=== PATIENT | female | born 1995 | race Caucasian/White ===

== ENCOUNTER 2016-09-08 18:21 | Emergency (ER) | payer MEDICAID, OTHER, SELFPAY ==
[~2016-09-08 18:21] MED LIST: ACET50TA PO; BACT800T5 PO; IBUP60TA PO; LEVA500T PO; NICO21PAT TD; PERCOCET PO; SERT-141 PO; ZYVO100T PO
[2016-09-08] MEDS ORDERED: CLINDAMYCIN 150 MG CAP As Ordered ONE (19:03)
[2016-09-08] MEDS ORDERED: IBUPROFEN 400 MG TAB As Ordered ONE (19:03)
[2016-09-08] MEDS ORDERED: CIPROFLOXACIN HC OTIC SUSPENSION As Ordered ONE (19:03)
--- NOTE | 2016-09-08 19:35 | EDDOCDS ---
Physician Documentation [facility] Name: Lorna Kirk Age: 20 yrs Sex: Female : 1995 Arrival Date: 09/08/2016 Time: 18:21 Bed Triage 1 Private MD: Disposition: 09/08/16 19:28 Discharged to Home/Self Care. Impression: Cellulitis, unspecified - RIGHT POSTERIOR SHOULDER, Acute actinic otitis externa, left ear. - Condition is Stable. - Discharge Instructions: Cellulitis, Otitis Externa. - Prescriptions for Cipro HC 0.2- 1 % Otic Drops, Suspension - instill 3 drop by OTIC route every 12 hours for 7 days; 10 milliliter. Clindamycin HCl 300 mg Oral Capsule - take 1 capsule by ORAL route every 6 hours; 40 capsule. Ibuprofen 400 mg Oral Tablet - take 1 tablet by ORAL route every 6 hours As needed take with food; 30 tablet. - Medication Reconciliation, Local Pharmacy Hours form. - Follow up: Emergency Department; When: 1 - 2 days; Reason: Wound/Symptom Recheck, Recheck today's complaints, Continuance of care. - Problem is new. - Symptoms have improved. - Notes: USE MEDICATIONS INSTRUCTED, FOLLOW UP IN THE PHILIPPE FRIDAYFOR RECHECK OF SYMPTOMS, RETURN SOONER IF SYMPTOMS WORSEN OR BECOME CONCERNING Historical: - Allergies: no known allergies; - Home Meds: 1. Atarax 25 mg Oral tab as needed 2. Lopressor 12.5 mg daily Oral - PMHx: Hepatitis C; Substance Abuse; Anxiety; Hypertension; - PSHx: none; - Social history: Smoking status: Patient uses tobacco products, light tobacco smoker. No barriers to communication noted, The patient speaks fluent Kyrgyz. - Family history: Not pertinent. - : The pt / caregiver states he / she is not on anticoagulants. Home medication list is obtained from the patient. - Exposure Risk Screening:: None identified. [employer]: 09/08 18:30 LMP N/A - Irregular menses rs3 Vital Signs: 18:23 BP 138 / 69 RA Sitting (auto/reg); Pulse 119; Resp 20; Temp 98.9; Pulse Ox 99% on R/A; bnb Weight 59.87 kg / 131.99 lbs; Height 5 ft. 9 in. (175.26 cm); Pain 9/10; 19:02 BP 113 / 67; Pulse 116; Resp 20; Pulse Ox 98% on R/A; ar3 19:31 Pulse 107; Resp 16; Pulse Ox 98% on R/A; Pain 8/10; ttb 18:23 Body Mass Index 19.49 (59.87 kg, 175.26 cm) bnb MDM: 19:00 Recheck Vital Signs, perform reassessment and enter into [employer] ordered. ck7 19:00 Clindamycin 300 mg PO once ordered. ck7 19:00 Ciprofloxacin-Hydrocortisone Drops 0.2 %-1 % 2 drps Otic once; LEFT EAR ordered. ck7 19:00 Ibuprofen 400 mg PO once ordered. ck7 : [facility] Payment Agreement was scanned into [email or web address] and attached to record. jp5 : Financial registration complete. jp5 Administered Medications: 19:07 Drug: Clindamycin 300 mg [clindamycin 150 mg capsule (2 caps)] Route: PO; jjr 19:07 Drug: Ciprofloxacin-Hydrocortisone 2 drps [ciprofloxacin 0.2 %-hydrocortisone 1 % ear jjr drops,suspension (2 drps)] Route: Otic; Site: left ear; 19:07 Drug: Ibuprofen 400 mg [ibuprofen 400 mg tablet (1 tabs)] Route: PO; jjr Signatures: Flora Gallego RN RN rs3 Jose Zamudio, RPA-C RPA-Cck7 Gauri Mckoy RN RN ttb Reagan Acevedo jp5 Anastacia Wright RN jjr The chart was reviewed and I authenticate all verbal orders and agree with the evaluation and treatment provided.Attachments: :25 REPLACED BY [facility] Payment Agreement jp5 MTDD
--- NOTE | 2016-09-08 19:36 | EDDOCDS ---
Nurse's Notes [facility] Name: Lorna Kirk Age: 20 yrs Sex: Female : 1995 Arrival Date: 09/08/2016 Time: 18:21 Bed Triage 1 Private MD: Diagnosis: Cellulitis, unspecified-RIGHT POSTERIOR SHOULDER;Acute actinic otitis externa, left ear Presentation: 09/08 18:25 Presenting complaint: Patient states: Right shoulder blade redness/pain for two days. rs3 started as pimple, popped it, redness/pain spreading. Adult Sepsis Screening: The patient does not have new or worsening altered mentation. Patient's respiratory rate is less than 22. Systolic blood pressure is greater than 100. Patient has a qSOFA score of 0- Negative Sepsis Screen. Suicide/Homicide risk assessment- the patient denies having any suicidal and/or homicidal ideations and does not present with any other emotional, behavioral or mental health complaints. 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 Transition of care: patient was not received from another setting of care. 18:25 Acuity: SALVATORE Level 4 rs3 18:25 Method Of Arrival: Walkin/Carried/Asstd rs3 Triage Assessment: 18:30 General: Appears in no apparent distress. Pain: Location: right scapular area. 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 Atarax 25 mg Oral tab as needed 2. Lopressor 12.5 mg daily Oral - PMHx: Hepatitis C; Substance Abuse; Anxiety; Hypertension; - PSHx: none; - Social history: Smoking status: Patient uses tobacco products, light tobacco smoker. No barriers to communication noted, The patient speaks fluent Occitan. - Family history: Not pertinent. - : The pt / caregiver states he / she is not on anticoagulants. Home medication list is obtained from the patient. - Exposure Risk Screening:: None identified. Screenin:08 Screening information is obtained from the patient. Fall risk: No risks identified. jjr Assistance ADL's: requires no assistance with activities of daily living. Abuse/DV Screen: The patient / caregiver reports he/she is: not in a situation that causes fear, pain or injury. Nutritional screening: No deficits noted. Advance Directives: There is no active DNR order. home support is adequate. Assessment: 19:07 General: Appears in no apparent distress, slender, Behavior is appropriate for age. jjr EENT: Pinna red and crusty. Derm: multiple scabs noted to upper back. 19:34 Reassessment: Patient appears in no apparent distress at this time. pt states she is ttb ready for DC. Vital Signs: 18:23 BP 138 / 69 RA Sitting (auto/reg); Pulse 119; Resp 20; Temp 98.9; Pulse Ox 99% on R/A; bnb Weight 59.87 kg; Height 5 ft. 9 in. (175.26 cm); Pain 9/10; 19:02 BP 113 / 67; Pulse 116; Resp 20; Pulse Ox 98% on R/A; ar3 19:31 Pulse 107; Resp 16; Pulse Ox 98% on R/A; Pain 8/10; ttb 18:23 Body Mass Index 19.49 (59.87 kg, 175.26 cm) bnb Vitals: 18:23 Log In Time: September 08, 2016 at 18:20. bnb ED Course: 18:23 Patient visited by Lena Gonzalez PCA. bnb 18:23 Patient moved to Waiting bnb 18:24 Patient moved to Pre RCE bnb 18:28 Triage Initiated rs3 18:38 Patient moved to Triage 1 jjr 18:42 [facility]C [facility] ck[facility] 18:42 Dee Dixon MD is Attending Physician. ck7 18:42 Patient visited by Jose Zamudio RPA-C. ck7 19:02 Patient visited by Winter Soto PCA. ar3 19:08 The patient / caregiver is instructed regarding the plan of care and ED course. jjr 19:08 No IV's were initiated during this patient's visit. No procedures done that require jjr assistance. 19:09 Patient visited by Anastacia Wright RN. jjr 19:25 [facility] Payment Agreement was scanned into [employer] and attached to record. jp5 19:33 Patient visited by Gauri Mckoy RN. ttb Administered Medications: 19:07 Drug: Clindamycin 300 mg [clindamycin 150 mg capsule (2 caps)] Route: PO; jjr 19:07 Drug: Ciprofloxacin-Hydrocortisone 2 drps [ciprofloxacin 0.2 %-hydrocortisone 1 % ear jjr drops,suspension (2 drps)] Route: Otic; Site: left ear; 19:07 Drug: Ibuprofen 400 mg [ibuprofen 400 mg tablet (1 tabs)] Route: PO; jjr Order Results: There are currently no results for this order. Outcome: 19:28 Discharge ordered by Provider. ck7 19:34 Discharge Assessment: Patient awake, alert and oriented x 3. No cognitive and/or ttb functional deficits noted. Patient verbalized understanding of disposition instructions. Patient awake and alert. patient administered narcotics - no. The following High Risk Discharge criteria are identified: None. Discharged to home ambulatory, with significant other. Condition: good Condition: stable Condition: improved. Discharge instructions given to patient, significant other, Instructed on discharge instructions, follow up and referral plans. medication usage, Demonstrated understanding of instructions, medications, Pt was receptive of discharge instructions/ teaching. Prescriptions given X 1, 2, 3. No special radiology studies were completed. Property :Personal belongings accompany Pt. 19:35 Patient left the ED. ttb Signatures: Anastacia Wright, RN RN Flora Patino RN RN rs3 Winter Soto, DIE TURNER DIE TURNER ar3 Jose Zamudio, RPA-C RPA-Cck7 Gauri Mckoy RN RN ttb Reagan Acevedo Brittney, DIE TURNER DIE TURNER bnb MTDD
--- NOTE | 2016-09-10 20:36 | EDDOCDS ---
Nurse's Notes [facility] Name: Lorna Kirk Age: 20 yrs Sex: Female : 1995 Arrival Date: 09/08/2016 Time: 18:21 Bed Triage 1 Private MD: Diagnosis: Cellulitis, unspecified-RIGHT POSTERIOR SHOULDER;Acute actinic otitis externa, left ear Presentation: 09/08 18:25 Presenting complaint: Patient states: Right shoulder blade redness/pain for two days. rs3 started as pimple, popped it, redness/pain spreading. Adult Sepsis Screening: The patient does not have new or worsening altered mentation. Patient's respiratory rate is less than 22. Systolic blood pressure is greater than 100. Patient has a qSOFA score of 0- Negative Sepsis Screen. Suicide/Homicide risk assessment- the patient denies having any suicidal and/or homicidal ideations and does not present with any other emotional, behavioral or mental health complaints. 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 Transition of care: patient was not received from another setting of care. 18:25 Acuity: SALVATORE Level 4 rs3 18:25 Method Of Arrival: Walkin/Carried/Asstd rs3 Triage Assessment: 18:30 General: Appears in no apparent distress. Pain: Location: right scapular area. HIV rs3 screening NA for this visit Offered previously. [employer]: 18:30 LMP N/A - Irregular menses rs3 Historical: - Allergies: no known allergies; - Home Meds: 1. Atarax 25 mg Oral tab as needed 2. Lopressor 12.5 mg daily Oral - PMHx: Hepatitis C; Substance Abuse; Anxiety; Hypertension; - PSHx: none; - Social history: Smoking status: Patient uses tobacco products, light tobacco smoker. No barriers to communication noted, The patient speaks fluent Belarusian. - Family history: Not pertinent. - : The pt / caregiver states he / she is not on anticoagulants. Home medication list is obtained from the patient. - Exposure Risk Screening:: None identified. Screenin:08 Screening information is obtained from the patient. Fall risk: No risks identified. jjr Assistance ADL's: requires no assistance with activities of daily living. Abuse/DV Screen: The patient / caregiver reports he/she is: not in a situation that causes fear, pain or injury. Nutritional screening: No deficits noted. Advance Directives: There is no active DNR order. home support is adequate. Assessment: 19:07 General: Appears in no apparent distress, slender, Behavior is appropriate for age. jjr EENT: Pinna red and crusty. Derm: multiple scabs noted to upper back. 19:34 Reassessment: Patient appears in no apparent distress at this time. pt states she is ttb ready for DC. Vital Signs: 18:23 BP 138 / 69 RA Sitting (auto/reg); Pulse 119; Resp 20; Temp 98.9; Pulse Ox 99% on R/A; bnb Weight 59.87 kg; Height 5 ft. 9 in. (175.26 cm); Pain 9/10; 19:02 BP 113 / 67; Pulse 116; Resp 20; Pulse Ox 98% on R/A; ar3 19:31 Pulse 107; Resp 16; Pulse Ox 98% on R/A; Pain 8/10; ttb 18:23 Body Mass Index 19.49 (59.87 kg, 175.26 cm) bnb Vitals: 18:23 Log In Time: September 08, 2016 at 18:20. bnb ED Course: 18:23 Patient visited by Lena Gonzalez PCA. bnb 18:23 Patient moved to Waiting bnb 18:24 Patient moved to Pre RCE bnb 18:28 Triage Initiated rs3 18:38 Patient moved to Triage 1 jjr 18:42 [facility] ck[facility] 18:42 Dee Dixon MD is Attending Physician. ck7 18:42 Patient visited by Jose Zamudio RPA-C. ck7 19:02 Patient visited by Winter Soto PCA. ar3 19:08 The patient / caregiver is instructed regarding the plan of care and ED course. jjr 19:08 No IV's were initiated during this patient's visit. No procedures done that require jjr assistance. 19:09 Patient visited by Anastacia Wright RN. jjr 19:25 [facility] Payment Agreement was scanned into [employer] and attached to record. jp5 19:33 Patient visited by Gauri Mckoy RN. ttb 09/09 12:36 T-Sheet-- Draft Copy was scanned into [employer] and attached to record. gb Administered Medications: 09/08 19:07 Drug: Clindamycin 300 mg [clindamycin 150 mg capsule (2 caps)] Route: PO; jjr 19:07 Drug: Ciprofloxacin-Hydrocortisone 2 drps [ciprofloxacin 0.2 %-hydrocortisone 1 % ear jjr drops,suspension (2 drps)] Route: Otic; Site: left ear; 19:07 Drug: Ibuprofen 400 mg [ibuprofen 400 mg tablet (1 tabs)] Route: PO; jjr Order Results: There are currently no results for this order. Outcome: 19:28 Discharge ordered by Provider. ck7 19:34 Discharge Assessment: Patient awake, alert and oriented x 3. No cognitive and/or ttb functional deficits noted. Patient verbalized understanding of disposition instructions. Patient awake and alert. patient administered narcotics - no. The following High Risk Discharge criteria are identified: None. Discharged to home ambulatory, with significant other. Condition: good Condition: stable Condition: improved. Discharge instructions given to patient, significant other, Instructed on discharge instructions, follow up and referral plans. medication usage, Demonstrated understanding of instructions, medications, Pt was receptive of discharge instructions/ teaching. Prescriptions given X 1, 2, 3. No special radiology studies were completed. Property :Personal belongings accompany Pt. 19:35 Patient left the ED. ttb Signatures: Ailin Freitas, Reg Reg gb Anastacia Wright RN RN Flora PatinoRN RN rs3 Winter Soto, CHEMISTRY DEPARTMENT CHAIR CHEMISTRY DEPARTMENT CHAIR ar3 Jose Zamudio RPA-C RPA-Cck7 Gauri Mckoy RN RN ttb Reagan Acevedo jp5 Lena Gonzalez, CHEMISTRY DEPARTMENT CHAIR CHEMISTRY DEPARTMENT CHAIR bnb Chart Complete MTDD
--- NOTE | 2016-09-10 20:36 | EDDOCDS ---
Physician Documentation [facility] Name: Lorna Kirk Age: 20 yrs Sex: Female : 1995 Arrival Date: 09/08/2016 Time: 18:21 Bed Triage 1 Private MD: Disposition: 09/08/16 19:28 Discharged to Home/Self Care. Impression: Cellulitis, unspecified - RIGHT POSTERIOR SHOULDER, Acute actinic otitis externa, left ear. - Condition is Stable. - Discharge Instructions: Cellulitis, Otitis Externa. - Prescriptions for Cipro HC 0.2- 1 % Otic Drops, Suspension - instill 3 drop by OTIC route every 12 hours for 7 days; 10 milliliter. Clindamycin HCl 300 mg Oral Capsule - take 1 capsule by ORAL route every 6 hours; 40 capsule. Ibuprofen 400 mg Oral Tablet - take 1 tablet by ORAL route every 6 hours As needed take with food; 30 tablet. - Medication Reconciliation, Local Pharmacy Hours form. - Follow up: Emergency Department; When: 1 - 2 days; Reason: Wound/Symptom Recheck, Recheck today's complaints, Continuance of care. - Problem is new. - Symptoms have improved. - Notes: USE MEDICATIONS INSTRUCTED, FOLLOW UP IN THE [place]IP[place] FRIDAYFOR RECHECK OF SYMPTOMS, RETURN SOONER IF SYMPTOMS WORSEN OR BECOME CONCERNING Historical: - Allergies: no known allergies; - Home Meds: 1. Atarax 25 mg Oral tab as needed 2. Lopressor 12.5 mg daily Oral - PMHx: Hepatitis C; Substance Abuse; Anxiety; Hypertension; - PSHx: none; - Social history: Smoking status: Patient uses tobacco products, light tobacco smoker. No barriers to communication noted, The patient speaks fluent Telugu. - Family history: Not pertinent. - : The pt / caregiver states he / she is not on anticoagulants. Home medication list is obtained from the patient. - Exposure Risk Screening:: None identified. [employer]: 09/08 18:30 LMP N/A - Irregular menses rs3 Vital Signs: 18:23 BP 138 / 69 RA Sitting (auto/reg); Pulse 119; Resp 20; Temp 98.9; Pulse Ox 99% on R/A; bnb Weight 59.87 kg / 131.99 lbs; Height 5 ft. 9 in. (175.26 cm); Pain 9/10; 19:02 BP 113 / 67; Pulse 116; Resp 20; Pulse Ox 98% on R/A; ar3 19:31 Pulse 107; Resp 16; Pulse Ox 98% on R/A; Pain 8/10; ttb 18:23 Body Mass Index 19.49 (59.87 kg, 175.26 cm) bnb MDM: 19:00 Recheck Vital Signs, perform reassessment and enter into [employer] ordered. ck7 19:00 Clindamycin 300 mg PO once ordered. ck7 19:00 Ciprofloxacin-Hydrocortisone Drops 0.2 %-1 % 2 drps Otic once; LEFT EAR ordered. ck7 19:00 Ibuprofen 400 mg PO once ordered. ck7 : [facility] Payment Agreement was scanned into [employer] and attached to record. jp5 : Financial registration complete. 09/09 12:36 T-Sheet-- Draft Copy was scanned into [employer] and attached to record. gb Administered Medications: 09/08 19:07 Drug: Clindamycin 300 mg [clindamycin 150 mg capsule (2 caps)] Route: PO; jjr 19:07 Drug: Ciprofloxacin-Hydrocortisone 2 drps [ciprofloxacin 0.2 %-hydrocortisone 1 % ear jjr drops,suspension (2 drps)] Route: Otic; Site: left ear; 19:07 Drug: Ibuprofen 400 mg [ibuprofen 400 mg tablet (1 tabs)] Route: PO; jjr Signatures: Ailin Freitas, Reg Reg Flora GormanRN RN rs3 Jose Zamudio, RPA-C RPA-Cck7 Gauri Mckoy RN RN ttReagan Hernandez jp5 Anastacia Wright RN jjr The chart was reviewed and I authenticate all verbal orders and agree with the evaluation and treatment provided.Attachments: : [facility] Payment Agreement jp5 09/09 12:36 T-Sheet-- Draft Copy gb Chart Complete MTDD
--- NOTE | 2016-09-10 20:36 | EDDOCDS ---
Physician Documentation [facility] Name: Lorna Kirk Age: 20 yrs Sex: Female : 1995 Arrival Date: 09/08/2016 Time: 18:21 Bed Triage 1 Private MD: Disposition: 09/08/16 19:28 Discharged to Home/Self Care. Impression: Cellulitis, unspecified - RIGHT POSTERIOR SHOULDER, Acute actinic otitis externa, left ear. - Condition is Stable. - Discharge Instructions: Cellulitis, Otitis Externa. - Prescriptions for Cipro HC 0.2- 1 % Otic Drops, Suspension - instill 3 drop by OTIC route every 12 hours for 7 days; 10 milliliter. Clindamycin HCl 300 mg Oral Capsule - take 1 capsule by ORAL route every 6 hours; 40 capsule. Ibuprofen 400 mg Oral Tablet - take 1 tablet by ORAL route every 6 hours As needed take with food; 30 tablet. - Medication Reconciliation, Local Pharmacy Hours form. - Follow up: Emergency Department; When: 1 - 2 days; Reason: Wound/Symptom Recheck, Recheck today's complaints, Continuance of care. - Problem is new. - Symptoms have improved. - Notes: USE MEDICATIONS INSTRUCTED, FOLLOW UP IN THE PHILIP[place] FRIDAYFOR RECHECK OF SYMPTOMS, RETURN SOONER IF SYMPTOMS WORSEN OR BECOME CONCERNING Historical: - Allergies: no known allergies; - Home Meds: 1. Atarax 25 mg Oral tab as needed 2. Lopressor 12.5 mg daily Oral - PMHx: Hepatitis C; Substance Abuse; Anxiety; Hypertension; - PSHx: none; - Social history: Smoking status: Patient uses tobacco products, light tobacco smoker. No barriers to communication noted, The patient speaks fluent Lithuanian. - Family history: Not pertinent. - : The pt / caregiver states he / she is not on anticoagulants. Home medication list is obtained from the patient. - Exposure Risk Screening:: None identified. 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 9 in. (175.26 cm); Pain 9/10; 19:02 BP 113 / 67; Pulse 116; Resp 20; Pulse Ox 98% on R/A; ar3 19:31 Pulse 107; Resp 16; Pulse Ox 98% on R/A; Pain 8/10; ttb 18:23 Body Mass Index 19.49 (59.87 kg, 175.26 cm) bnb MDM: 19:00 Recheck Vital Signs, perform reassessment and enter into [employer] ordered. ck7 19:00 Clindamycin 300 mg PO once ordered. ck7 19:00 Ciprofloxacin-Hydrocortisone Drops 0.2 %-1 % 2 drps Otic once; LEFT EAR ordered. ck7 19:00 Ibuprofen 400 mg PO once ordered. ck7 : [facility] Payment Agreement was scanned into [employer] and attached to record. jp5 : Financial registration complete. 09/09 12:36 T-Sheet-- Draft Copy was scanned into [employer] and attached to record. gb Administered Medications: 09/08 19:07 Drug: Clindamycin 300 mg [clindamycin 150 mg capsule (2 caps)] Route: PO; jjr 19:07 Drug: Ciprofloxacin-Hydrocortisone 2 drps [ciprofloxacin 0.2 %-hydrocortisone 1 % ear jjr drops,suspension (2 drps)] Route: Otic; Site: left ear; 19:07 Drug: Ibuprofen 400 mg [ibuprofen 400 mg tablet (1 tabs)] Route: PO; jjr Signatures: Ailin Freitas, Reg Reg Flora GormanRN RN rs3 Jose Zamudio, RPA-C RPA-Cck7 Gauri Mckoy RN RN ttReagan Hernandez jp5 Anastacia Wright RN jjr The chart was reviewed and I authenticate all verbal orders and agree with the evaluation and treatment provided.Attachments: : [facility] Payment Agreement jp5 09/09 12:36 T-Sheet-- Draft Copy gb Chart Complete MTDD
== END 2016-09-08 19:35 | disposition home or self-care (01) ==
LOC: M ED 18:21
DX: L03.113 Cellulitis of right upper limb (principal); H60.92 Unspecified otitis externa, left ear; Z86.19 Personal history of other infectious and parasitic diseases; F19.10 Other psychoactive substance abuse, uncomplicated; F41.9 Anxiety disorder, unspecified; I10 Essential (primary) hypertension; Z72.0 Tobacco use; Z79.899 Other long term (current) drug therapy

== ENCOUNTER 2017-01-18 23:49 | Emergency (ER) | payer MEDICAID, OTHER ==
[~2017-01-18] VITALS: Ht 172.7 cm; Wt 55.8 kg
[~2017-01-18 23:49] MED LIST changes: +LEVA1TAB2 PO; -LEVA500T PO; -SERT-141 PO; +SERT50TA PO
[2017-01-19] MEDS ORDERED: ZOLO25TA PO (00:02)
[2017-01-19 00:09] VITALS: BP 111/79
== END 2017-01-19 01:05 | disposition left against medical advice (07) ==
LOC: EDBD 23:49 → M ED 01-19 00:39
DX: F43.9 Reaction to severe stress, unspecified (principal); K75.9 Inflammatory liver disease, unspecified

== ENCOUNTER → 2017-11-11 | Outpatient (CLI) | payer MEDICAID | LOC: M RAD 09:22 | DX: M54.6 Pain in thoracic spine (principal) | CPT/HCPCS: 72072 ==

== ENCOUNTER 2018-07-16 05:44 | Day surgery (SDC) | payer OTHER ==
[2018-07-16] MEDS: LR 1,000 ML IV (06:55)
[2018-07-16 07:10] LABS: CONTROL LINE UCG INT CTR LINE PRESENT; URINE PREG TEST NEGATIVE (NEGATIVE)
[2018-07-16] MEDS: METHYLENE BLUE 0.5% (5MG/ML) 10 ML AMP (PROVAYBLUE)(Q9968 PER 1MG) As Ordered (07:13)
[2018-07-16] MEDS ORDERED: PROPOFOL 200 MG/20 ML VIAL As Ordered (07:14)
[2018-07-16] MEDS ORDERED: ROCURONIUM BROMIDE 50 MG/5 ML VIAL As Ordered (07:14)
[2018-07-16] MEDS ORDERED: dexameTHASONE 4 MG/ML 1ML VIAL (J1100) As Ordered ×2 (07:14)
[2018-07-16] MEDS ORDERED: ONDANSETRON 4MG/2ML VIAL (J2405) As Ordered (07:14)
[2018-07-16] MEDS ORDERED: LIDOCAINE 2% INJ 100 MG/5 ML SDV (FOR ANES.) As Ordered (07:14)
[2018-07-16] MEDS ORDERED: fentaNYL 100 MCG/2 ML INJECTION (J3010) As Ordered (07:15)
[2018-07-16] MEDS ORDERED: MIDAZOLAM INJ 2 MG/2 ML VIAL (J2250) As Ordered (07:15)
[2018-07-16] MEDS: EPINEPHrine 1MG/ML INJ 30ML MD-VIAL As Ordered (07:59)
[2018-07-16] MEDS: LIDOCAINE W/EPINEPHRINE 1% 20ML VIAL As Ordered (07:59)
[2018-07-16] MEDS ORDERED: ACETAMINOPH W/CODEINE #3 TAB UD PO (08:45)
[2018-07-16] MEDS ORDERED: fentaNYL 100 MCG/2 ML INJECTION (J3010) IV (08:45)
[2018-07-16] MEDS ORDERED: ACETAMINOPHEN TAB 650MG DOSE (2X325MG) PO (08:45)
[2018-07-16] MEDS ORDERED: LR 1,000 ML IV ×2 (08:45)
[2018-07-16] MEDS ORDERED: PERCOCET 5MG/325MG TAB PO (08:45)
== END 2018-07-16 10:15 | disposition home or self-care (01) ==
LOC: M SDC 05:44
DX: J34.2 Deviated nasal septum (principal); B18.2 Chronic viral hepatitis C; F41.9 Anxiety disorder, unspecified; F32.9 Major depressive disorder, single episode, unspecified; F43.10 Post-traumatic stress disorder, unspecified; J45.909 Unspecified asthma, uncomplicated; Z91.09 Other allergy status, other than to drugs and biological substances; Z79.899 Other long term (current) drug therapy
CPT/HCPCS: 30520

== ENCOUNTER → 2018-07-23 | Outpatient (CLI) | payer OTHER ==
[~2018-07-23] MED LIST changes: -ACET50TA PO; +AMOX875T2 PO; +BUSP15TA47 PO; +BUSP30TA PO; +FLUTISP; +MAPA500T2 PO; +NALT50TA4 PO; +PAXI20TA29 PO; +PRAZ1CAP PO; +REME15TA PO; +VIVI380I IM; +ZOLO25TA PO; -ZYVO100T PO; +ZYVO1TAB PO; +nicotine gum
[2018-07-23 13:22] LABS: ALBUMIN 3.4 GM/DL (3.2-5.2); ALT/SGPT 22 U/L (12-78); BILIRUBIN,TOTAL 0.2 MG/DL (0.2-1.0); BLOOD UREA NITROGEN 10 MG/DL (7-18); CALCIUM LEVEL 8.8 MG/DL (8.5-10.1); CARBON DIOXIDE LEVEL 29 MEQ/L (21-32); CHLORIDE LEVEL 104 MEQ/L (98-107); CREATININE FOR GFR 0.62 MG/DL (0.55-1.30); GLOMERULAR FILTRATION RATE > 60.0 (>60); GLUCOSE, FASTING 59 MG/DL (70-100); POTASSIUM SERUM 4.4 MEQ/L (3.5-5.1); SODIUM LEVEL 139 MEQ/L (136-145)
[2018-07-23 13:25] LABS: BASO % 0.3 % (0.0-1.0); EOS # 0.1 10^3/uL (0.0-0.50); EOS % 1.6 % (0.0-3.0); HEMATOCRIT 36.2 % (36.0-47.0); HEMOGLOBIN 12.1 g/dl (12.0-15.5); LYMPH # 2.1 10^3/uL (1.5-6.5); LYMPH % 34.9 % (24.0-44.0); MEAN CORPUSCULAR HEMOGLOBIN 27.9 pg (27.0-33.0); MEAN CORPUSCULAR HGB CONC 33.4 g/dl (32.0-36.5); MEAN CORPUSCULAR VOLUME 83.6 fl (80.0-96.0); MONO # 0.4 10^3/uL (0.0-0.8); MONO % 6.2 % (0.0-5.0); NEUTROPHILS # 3.5 10^3/uL (1.8-7.7); NEUTROPHILS % 56.8 % (36.0-66.0); PLATELET COUNT, AUTOMATED 279 10^3/uL (150-450); RED BLOOD COUNT 4.33 10^6/uL (4.00-5.40); WHITE BLOOD COUNT 6.1 10^3/uL (4.0-10.0)
[2018-07-23 13:34] LABS: APPEARANCE, URINE CLOUDY (CLEAR); BACTERIA, URINE AUTO 1+ (NEGATIVE); BILIRUBIN, URINE AUTO NEGATIVE (NEGATIVE); BLOOD, URINE BLOOD NEGATIVE (NEGATIVE); COLOR, URINE YELLOW (YELLOW); GLUCOSE, URINE (UA) AUTO NEGATIVE (NEGATIVE); KETONE, URINE AUTO NEGATIVE (NEGATIVE); LEUKOCYTE ESTERASE, URINE AUTO NEGATIVE (NEGATIVE); MUCUS, URINE SMALL (NEGATIVE); NITRITE, URINE AUTO NEGATIVE (NEGATIVE); PROTEIN, URINE AUTO NEGATIVE (NEGATIVE); RBC, URINE AUTO 1 /HPF (0-3); SPECIFIC GRAVITY URINE AUTO 1.011 (1.002-1.035); SQUAMOUS EPITHELIAL CELL UR AU 35 /HPF (0-6); UROBILINOGEN, URINE AUTO 0.2 mg/dL (0.0-2.0); WBC, URINE AUTO 3 /HPF (0-3)
[2018-07-24 10:34] LABS: HEPATITIS B SURFACE ANTIGEN NEGATIVE (NEGATIVE)
[2018-07-24 11:01] LABS: HEPATITIS B CORE ANTIBODY IGM NEGATIVE (NEGATIVE)
[2018-07-24 11:04] LABS: HEPATITIS A ANTIBODY IGM NEGATIVE (NEGATIVE)
[2018-07-24 11:20] LABS: HEPATITIS C VIRUS ABY INDEX > 11.0 INDEX (<0.8)
== END ==
LOC: M SMT 08:49
PROVIDERS: ATTEND Physician Assistant Medical
DX: Z02.2 Encounter for examination for admission to residential institution (principal)

== ENCOUNTER 2023-07-28 13:07 | Emergency (ER) | payer OTHER ==
[~2023-07-28] VITALS: Ht 172.7 cm; Wt 78.8 kg
[~2023-07-28 13:07] MED LIST changes: +IBUP600T42 PO; -IBUP60TA PO; +MIRT-88 PO; -PAXI20TA29 PO; +PAXI20TA30 PO; -REME15TA PO; +SERT-141 PO; -SERT50TA PO
[2023-07-28] MEDS ORDERED: PSEU120T19 PO (16:11)
[2023-07-28 16:22] VITALS: BP 102/69; TEMP 97.5; O2SAT 99
== END 2023-07-28 16:26 | disposition home or self-care (01) ==
LOC: M ED 13:07
DX: J06.9 Acute upper respiratory infection, unspecified (principal); F10.10 Alcohol abuse, uncomplicated; Z79.899 Other long term (current) drug therapy

== ENCOUNTER → 2024-03-15 | Outpatient (CLI) | payer OTHER ==
[~2024-03-15] MED LIST changes: +PSEU120T19 PO
== END ==
LOC: M RAD 07:28
PROVIDERS: ATTEND Physician Assistant Medical
DX: N93.9 Abnormal uterine and vaginal bleeding, unspecified (principal); N83.202 Unspecified ovarian cyst, left side

== ENCOUNTER → 2024-05-07 | Outpatient (CLI) | payer OTHER | LOC: M RAD 14:30 | PROVIDERS: ATTEND Physician Assistant | DX: R10.2 Pelvic and perineal pain (principal); N83.201 Unspecified ovarian cyst, right side ==

== ENCOUNTER → 2024-08-17 | Outpatient (REF) | payer OTHER | LOC: M LAB REF 12:23 | PROVIDERS: ATTEND Physician Assistant | DX: B34.9 Viral infection, unspecified (principal) ==

== ENCOUNTER → 2024-09-30 | Outpatient (REF) | payer OTHER ==
[2024-09-30 13:41] LABS: BASO % 0.2 % (0.0-1.0); EOS # 0.2 10^3/uL (0.0-0.5); EOS % 1.8 % (0.0-3.0); HEMATOCRIT 39.9 % (36.0-47.0); HEMOGLOBIN 13.7 g/dl (12.0-15.5); LYMPH # 1.8 10^3/uL (1.5-5.0); LYMPH % 19.1 % (24.0-44.0); MEAN CORPUSCULAR HEMOGLOBIN 30.4 pg (27.0-33.0); MEAN CORPUSCULAR HGB CONC 34.3 g/dl (32.0-36.5); MEAN CORPUSCULAR VOLUME 88.5 fl (80.0-96.0); MONO # 0.4 10^3/uL (0.0-0.8); MONO % 4.6 % (2.0-8.0); NEUTROPHILS # 7.1 10^3/uL (1.5-8.5); PLATELET COUNT, AUTOMATED 274 10^3/uL (150-450); RED BLOOD COUNT 4.51 10^6/uL (4.00-5.40); WHITE BLOOD COUNT 9.6 10^3/uL (4.0-10.0)
[2024-09-30 13:50] LABS: THYROID STIMULATING HORMONE 1.443 uIU/ML (0.55-4.78)
[2024-09-30 13:54] LABS: HEMOGLOBIN A1c 4.5 % (4.0-6.0)
[2024-09-30 14:06] LABS: ALBUMIN 3.9 G/DL (3.2-5.2); ALKALINE PHOSPHATASE 78 U/L (35-104); ALT/SGPT 37 U/L (7.0-40); AST/SGOT 20 U/L (<34); BILIRUBIN,TOTAL 0.4 MG/DL (0.3-1.2); BLOOD UREA NITROGEN < 5 MG/DL (9-23); CALCIUM LEVEL 9.3 MG/DL (8.5-10.1); CARBON DIOXIDE LEVEL 27 MMOL/L (20-31); CHLORIDE LEVEL 104 MMOL/L (98-107); CHOLESTEROL LEVEL 154 MG/DL (<200); CHOLESTEROL RISK RATIO 3.77 (<5); CREATININE FOR GFR 0.71 MG/DL (0.55-1.30); GLOMERULAR FILTRATION RATE > 60.0 (>60); GLUCOSE, FASTING 85 MG/DL (60-100); HDL CHOLESTEROL 40.8 MG/DL (>40); LDL CHOLESTEROL 98.2 MG/DL (<100); NON-HDL-C 113.2 MG/DL; POTASSIUM SERUM 4.2 MMOL/L (3.5-5.1); SODIUM LEVEL 141 MMOL/L (136-145); TOTAL PROTEIN 7.4 G/DL (5.7-8.2); TRIGLYCERIDES LEVEL 75 MG/DL (<150)
== END ==
LOC: M LAB REF 13:05
PROVIDERS: ATTEND Nurse Practitioner Family
DX: E66.3 Overweight (principal); R53.83 Other fatigue; Z11.9 Encounter for screening for infectious and parasitic diseases, unspecified

== ENCOUNTER → 2025-02-25 | Outpatient (REF) | payer OTHER | LOC: M LAB REF 16:20 | PROVIDERS: ATTEND Nurse Practitioner Family | DX: J06.9 Acute upper respiratory infection, unspecified (principal) ==

== ENCOUNTER → 2025-06-22 | Outpatient (REF) | payer OTHER ==
[2025-06-22 13:33] LABS: Trichomonas vaginalis (AMP) NOT DETECTED (NEGATIVE)
[2025-06-22 13:57] LABS: GC DNA AMPLIFICATION NEGATIVE (NEGATIVE)
== END ==
LOC: M LAB REF 11:44
PROVIDERS: ATTEND Nurse Practitioner Family
DX: N76.0 Acute vaginitis (principal)